=== PATIENT | female | born 1960 | race Caucasian/White ===

== ENCOUNTER 2023-06-04 06:27 | Day surgery (SDC) | payer OTHER ==
[~2023-06-04] VITALS: Ht 152.4 cm; Wt 52.2 kg
[~2023-06-04 06:27] MED LIST: ALBU18HF12 IH; ASPI-1444 PO; ATOR10TA69 PO; FAMO20TA8 PO; LOSA-381 PO; MONT-40 PO; PRED-729 PO
[2023-06-04] MEDS ORDERED: LIDOCAINE 2% 11 ML JELLY TP ONE (06:28)
[2023-06-04] MEDS ORDERED: LIDOCAINE 4% 50 ML SOLUTION TP ONE (06:28)
[2023-06-04] MEDS ORDERED: BENZOCAINE 20% 50 MCG/SPRAY 57 GM TP ONE (06:28)
[2023-06-04] MEDS ORDERED: SODIUM CHLORIDE 0.9% 1,000 ML ONE (07:26)
[2023-06-04] MEDS ORDERED: ALEN70TA65 PO (07:44)
[2023-06-04] MEDS ORDERED: CHOL200059 PO (07:44)
[2023-06-04] MEDS ORDERED: ATOR10TA PO (07:44)
[2023-06-04] MEDS ORDERED: SODIUM CHLORIDE 0.9% 1,000 ML IV ONE (07:45)
[2023-06-04] MEDS ORDERED: MIDAZOLAM HCL 2 MG/2 ML VIAL ONE (08:45)
[2023-06-04] MEDS ORDERED: FentaNYL CITRATE PF 100 MCG/2 ML VIAL ONE (08:45)
[2023-06-04 09:10] VITALS: PULSE 68; RESP 18; O2SAT 100
[2023-06-04] MEDS ORDERED: MethylPREDNISolone SOD SUCC 125 MG/2 ML VIAL ONE (09:22)
[2023-06-04] MEDS ORDERED: MethylPREDNISolone SOD SUCC 125 MG/2 ML VIAL IVP ONE (09:30)
== END 2023-06-04 12:00 | disposition home or self-care (01) ==
LOC: SURGERY 06:27
PROVIDERS: ATTEND Internal Medicine Critical Care Medicine
DX: J38.4 Edema of larynx (principal); B37.0 Candidal stomatitis; I10 Essential (primary) hypertension; E78.00 Pure hypercholesterolemia, unspecified; Z79.899 Other long term (current) drug therapy; Z98.890 Other specified postprocedural states
CPT/HCPCS: 31623; 31624; 71045; 87015; 87070; 87101; 87206; 87220; 88112; J2250; J2930; J3010; J7030; Q9967; Z7610